=== PATIENT | female | born 1940 | race Caucasian/White ===

== ENCOUNTER 2025-02-28 10:48 | Inpatient (IN) | payer MEDICARE, MEDICAID ==
[~2025-02-28] VITALS: Ht 162.6 cm; Wt 114.6 kg
[2025-02-28] MEDS ORDERED: MAALOX 30 ML SUSP *UDC PO PRN (14:25)
[2025-02-28] MEDS ORDERED: BISACODYL 5 MG TAB PO PRN (14:25)
[2025-02-28] MEDS ORDERED: MOM 30 ML SUSPENSION UDC PO PRN (14:25)
[2025-02-28] MEDS ORDERED: BISACODYL 10 MG SUPP PR PRN (14:25)
[2025-02-28] MEDS ORDERED: SIMETHICONE 80MG CHEW TAB PO PRN (14:25)
[2025-02-28] MEDS ORDERED: ACETAMINOPHEN 325 MG/10.15 ML UDC GT PRN (14:45)
[2025-02-28 17:22] VITALS: BP 110/85; TEMP 98; O2SAT 96
[2025-02-28] MEDS ORDERED: ECOT81TA5 PO (18:20)
[2025-02-28] MEDS ORDERED: ATOR40TA75 PO (18:53)
[2025-02-28] MEDS ORDERED: SPIR-10 PO (18:53)
[2025-02-28] MEDS ORDERED: FARX1TAB3 PO (18:53)
[2025-02-28] MEDS ORDERED: CYAN500T3 PO (18:53)
[2025-02-28] MEDS ORDERED: METO1TAB33 PO (18:53)
[2025-02-28] MEDS ORDERED: CHOL25TA2 PO (18:53)
[2025-02-28] MEDS ORDERED: GABA-1172 PO (18:53)
[2025-02-28] MEDS ORDERED: DOFE125C17 PO (18:53)
[2025-02-28] MEDS ORDERED: CALC600T60 PO (18:53)
[2025-02-28] MEDS ORDERED: LEVO112T2 PO (18:53)
[2025-02-28] MEDS ORDERED: ATOR1TAB19 PO (18:59)
[2025-02-28] MEDS ORDERED: FURO40TA2 PO (18:59)
[2025-02-28] MEDS ORDERED: ELIQ2.5T PO (18:59)
[2025-02-28] MEDS ORDERED: HOME MED LIST COMPLETE! XX SCH (19:00)
[2025-02-28] MEDS ORDERED: MED REC COMMENT (19:00)
[2025-02-28 20:00] VITALS: BP 141/69; TEMP 97.6; O2SAT 97
[2025-02-28] MEDS: HEPARIN SOD 5000 UNITS/ML 1 ML VIAL/SYRINGE SC SCH (20:12)
[2025-02-28] MEDS: SENNA 8.6 MG TAB PO SCH (20:13)
[2025-02-28] MEDS: GABAPENTIN 300 MG CAP PO SCH (20:13)
[2025-02-28] MEDS: NYSTATIN 100,000 UNITS/GM TOPICAL PWD 15 GM TOP SCH (20:40)
[2025-02-28] MEDS ORDERED: DOFETILIDE 125 MCG PO SCH (21:00)
[2025-03-01 03:24] VITALS: BP 146/84; TEMP 98; O2SAT 93
[2025-03-01] MEDS: LEVOTHYROXINE 112 MCG TABLET (0.112 MG) PO SCH (05:48)
[2025-03-01 07:22] LABS: BASO # 0.1 10^3/uL (0.0-0.2); BASO % 0.7 % (0.0-1.0); EOS # 0.1 10^3/uL (0.0-0.5); EOS % 1.7 % (0.0-3.0); LYMPH # 1.3 10^3/uL (1.5-5.0); LYMPH % 18.0 % (24.0-44.0); MONO # 0.6 10^3/uL (0.0-0.8); MONO % 8.8 % (2.0-8.0); NEUTROPHILS # 5.1 10^3/uL (1.5-8.5); NEUTROPHILS % 70.4 % (36.0-66.0)
[2025-03-01 07:30] VITALS: BP 125/68
[2025-03-01] MEDS: CYANOCOBALAMIN 500 MCG TAB PO SCH (07:33)
[2025-03-01] MEDS: ATORVASTATIN 20 MG TAB PO SCH (07:33)
[2025-03-01] MEDS: SPIRONOLACTONE 12.5MG PER 1/2 TABLET PO SCH (07:34)
[2025-03-01] MEDS: APIXABAN 2.5 MG TAB PO SCH (07:34)
[2025-03-01] MEDS: METOPROLOL SUCC. 100 MG *XL* TAB PO SCH (07:34)
[2025-03-01] MEDS: FUROSEMIDE 40 MG TAB PO SCH (07:35)
[2025-03-01] MEDS: DAPAGLIFLOZIN PROPANEDIOL 10 MG TABLET PO SCH (07:36)
[2025-03-01] MEDS: CALCIUM/VITAMIN D 500 MG TAB PO SCH (07:36)
[2025-03-01] MEDS: MULTIVITAMINS/MINERALS THERAP 1 TAB PO SCH (07:36)
[2025-03-01] MEDS: ASPIRIN 81 MG CHEWABLE TABLET PO SCH (07:36)
[2025-03-01 07:45] LABS: CALCIUM LEVEL 8.5 MG/DL (8.3-10.6); CARBON DIOXIDE LEVEL 29.0 MMOL/L (20-31); CHLORIDE LEVEL 105.0 MMOL/L (98-107); CREATININE FOR GFR 1.28 MG/DL (0.55-1.30); GLOMERULAR FILTRATION RATE 41.3 (>32); POTASSIUM SERUM 4.8 MMOL/L (3.5-5.1); SODIUM LEVEL 143.0 MMOL/L (136-145)
[2025-03-01 11:34] VITALS: BP 112/60; TEMP 97.2; O2SAT 94
[2025-03-01] MEDS: DOFETILIDE 125 MCG CAPSULE PO SCH (14:55)
[2025-03-01 20:00] VITALS: BP 120/61; TEMP 97.1; O2SAT 97
[2025-03-02 00:59] VITALS: O2SAT 93
[2025-03-02 04:00] VITALS: BP 125/67; TEMP 97; O2SAT 92
[2025-03-02 07:20] VITALS: BP 141/64
[2025-03-02 07:33] VITALS: BP 121/59
[2025-03-02 10:55] LABS: CALCIUM LEVEL 8.5 MG/DL (8.3-10.6); CARBON DIOXIDE LEVEL 29.0 MMOL/L (20-31); CHLORIDE LEVEL 101.0 MMOL/L (98-107); CREATININE FOR GFR 1.42 MG/DL (0.55-1.30); GLOMERULAR FILTRATION RATE 36.5 (>32); POTASSIUM SERUM 4.8 MMOL/L (3.5-5.1); SODIUM LEVEL 141.0 MMOL/L (136-145)
[2025-03-02 12:00] VITALS: BP 124/56; TEMP 97.4; O2SAT 94
[2025-03-02 20:00] VITALS: BP_SYST 121; BP_SYST 169; BP_DIAS 56; BP_DIAS 70; TEMP 97; TEMP 97.2; O2SAT 92; O2SAT 99
[2025-03-03 04:00] VITALS: BP 112/57; TEMP 97.4; O2SAT 92
[2025-03-03 10:20] LABS: CALCIUM LEVEL 8.5 MG/DL (8.3-10.6); CARBON DIOXIDE LEVEL 31.0 MMOL/L (20-31); CHLORIDE LEVEL 100.0 MMOL/L (98-107); CREATININE FOR GFR 1.4 MG/DL (0.55-1.30); GLOMERULAR FILTRATION RATE 37.1 (>32); POTASSIUM SERUM 4.4 MMOL/L (3.5-5.1); SODIUM LEVEL 141.0 MMOL/L (136-145)
[2025-03-03 12:00] VITALS: BP 103/59; TEMP 97.3; O2SAT 94
[2025-03-03 20:00] VITALS: BP 116/62; TEMP 97.4; O2SAT 93
[2025-03-04 04:00] VITALS: BP 116/57; TEMP 97.8; O2SAT 92
[2025-03-04 06:25] LABS: CALCIUM LEVEL 8.2 MG/DL (8.3-10.6); CARBON DIOXIDE LEVEL 31.0 MMOL/L (20-31); CHLORIDE LEVEL 102.0 MMOL/L (98-107); CREATININE FOR GFR 1.43 MG/DL (0.55-1.30); GLOMERULAR FILTRATION RATE 36.2 (>32); POTASSIUM SERUM 4.6 MMOL/L (3.5-5.1); SODIUM LEVEL 142.0 MMOL/L (136-145)
[2025-03-04 12:00] VITALS: BP 102/57; TEMP 96.7; O2SAT 94
[2025-03-04 20:00] VITALS: BP 105/74; TEMP 97; O2SAT 93
[2025-03-05 04:00] VITALS: BP 111/56; TEMP 97.3; O2SAT 90
[2025-03-05 06:19] LABS: CALCIUM LEVEL 8.4 MG/DL (8.3-10.6); CARBON DIOXIDE LEVEL 32.0 MMOL/L (20-31); CHLORIDE LEVEL 99.0 MMOL/L (98-107); CREATININE FOR GFR 1.58 MG/DL (0.55-1.30); GLOMERULAR FILTRATION RATE 32.1 (>32); POTASSIUM SERUM 4.8 MMOL/L (3.5-5.1); SODIUM LEVEL 140.0 MMOL/L (136-145)
[2025-03-05 08:20] VITALS: BP 122/59
[2025-03-05 12:30] VITALS: BP 101/59; TEMP 97.5; O2SAT 95
[2025-03-05 20:00] VITALS: BP 135/67; TEMP 97.8; O2SAT 92
[2025-03-06 04:00] VITALS: BP 101/57; TEMP 97.2; O2SAT 93
[2025-03-06 07:07] LABS: CALCIUM LEVEL 8.8 MG/DL (8.3-10.6); CARBON DIOXIDE LEVEL 30.0 MMOL/L (20-31); CHLORIDE LEVEL 101.0 MMOL/L (98-107); CREATININE FOR GFR 1.45 MG/DL (0.55-1.30); GLOMERULAR FILTRATION RATE 35.6 (>32); POTASSIUM SERUM 4.9 MMOL/L (3.5-5.1); SODIUM LEVEL 142.0 MMOL/L (136-145)
[2025-03-06 08:39] VITALS: BP 105/57
[2025-03-06] MEDS ORDERED: E-Z-PAQUE 96% w/w SUSP 176 GM BTL As Ordered ONE (11:11)
[2025-03-06] MEDS ORDERED: BARIUM SULFATE 700 MG TABLET As Ordered ONE (11:11)
[2025-03-06] MEDS ORDERED: VARIBAR NECTAR 40% w/v 240ML SUSP BTL As Ordered ONE (11:12)
[2025-03-06] MEDS ORDERED: VARIBAR PUDDING 40% w/v 230ML TUBE As Ordered ONE (11:12)
[2025-03-06 12:00] VITALS: BP 106/69; TEMP 97.4; O2SAT 93
[2025-03-06 20:00] VITALS: BP 121/60; TEMP 97.2; O2SAT 91
[2025-03-07 04:00] VITALS: BP 130/85; TEMP 97.9; O2SAT 90
[2025-03-07 06:58] LABS: CALCIUM LEVEL 8.5 MG/DL (8.3-10.6); CARBON DIOXIDE LEVEL 29.0 MMOL/L (20-31); CHLORIDE LEVEL 103.0 MMOL/L (98-107); CREATININE FOR GFR 1.43 MG/DL (0.55-1.30); GLOMERULAR FILTRATION RATE 36.2 (>32); POTASSIUM SERUM 4.7 MMOL/L (3.5-5.1); SODIUM LEVEL 142.0 MMOL/L (136-145)
[2025-03-07 12:00] VITALS: BP 108/75; TEMP 97.5; O2SAT 92
[2025-03-07 20:00] VITALS: BP 126/73; TEMP 97.1; O2SAT 90
[2025-03-08 04:00] VITALS: BP 114/69; TEMP 97; O2SAT 92
[2025-03-08 12:30] VITALS: BP 99/54; TEMP 96.3; O2SAT 100
[2025-03-08 20:00] VITALS: BP 120/72; TEMP 97; O2SAT 92
[2025-03-09 04:00] VITALS: BP 113/53; TEMP 97; O2SAT 92
[2025-03-09 07:34] LABS: BASO # 0.1 10^3/uL (0.0-0.2); BASO % 1.0 % (0.0-1.0); EOS # 0.2 10^3/uL (0.0-0.5); EOS % 2.2 % (0.0-3.0); LYMPH # 1.2 10^3/uL (1.5-5.0); LYMPH % 16.2 % (24.0-44.0); MONO # 0.6 10^3/uL (0.0-0.8); MONO % 8.4 % (2.0-8.0); NEUTROPHILS # 5.2 10^3/uL (1.5-8.5); NEUTROPHILS % 71.9 % (36.0-66.0); PLATELET COUNT, AUTOMATED 290 10^3/uL (150-450)
[2025-03-09 07:47] LABS: CALCIUM LEVEL 8.3 MG/DL (8.3-10.6); CARBON DIOXIDE LEVEL 30.0 MMOL/L (20-31); CHLORIDE LEVEL 100.0 MMOL/L (98-107); CREATININE FOR GFR 1.52 MG/DL (0.55-1.30); GLOMERULAR FILTRATION RATE 33.6 (>32); POTASSIUM SERUM 4.4 MMOL/L (3.5-5.1); SODIUM LEVEL 142.0 MMOL/L (136-145)
[2025-03-09 09:06] VITALS: BP 120/53
[2025-03-09 12:00] VITALS: BP 115/56; TEMP 97.2; O2SAT 92
[2025-03-09 20:00] VITALS: BP 109/56; TEMP 97; O2SAT 91
[2025-03-10 04:00] VITALS: BP 100/59; TEMP 97; O2SAT 91
[2025-03-10 08:17] VITALS: BP 116/56
[2025-03-10 12:00] VITALS: BP 105/61; TEMP 98.1; O2SAT 96
[2025-03-10 20:09] VITALS: BP 118/65; TEMP 97; O2SAT 91
[2025-03-11 03:40] VITALS: BP 122/58; TEMP 97; O2SAT 92
[2025-03-11 12:00] VITALS: BP 107/54; TEMP 97; O2SAT 94
[2025-03-11 19:30] VITALS: BP 127/60; TEMP 97; O2SAT 92
[2025-03-12 05:29] VITALS: BP 102/51; TEMP 97.3; O2SAT 90
[2025-03-12] MEDS: NYSTATIN 500,000 UNITS/5 ML SUSP UDC SSP SCH (12:43)
[2025-03-12 13:26] VITALS: BP 105/56; TEMP 96.8; O2SAT 95
[2025-03-12 20:00] VITALS: BP 102/60; TEMP 96.8; O2SAT 96
[2025-03-13 04:00] VITALS: BP 110/58; TEMP 96.5; O2SAT 90
[2025-03-13 07:29] LABS: BASO # 0.1 10^3/uL (0.0-0.2); BASO % 0.9 % (0.0-1.0); EOS # 0.2 10^3/uL (0.0-0.5); EOS % 2.0 % (0.0-3.0); LYMPH # 1.1 10^3/uL (1.5-5.0); LYMPH % 15.1 % (24.0-44.0); MONO # 0.5 10^3/uL (0.0-0.8); MONO % 6.1 % (2.0-8.0); NEUTROPHILS # 5.7 10^3/uL (1.5-8.5); NEUTROPHILS % 75.5 % (36.0-66.0); PLATELET COUNT, AUTOMATED 341 10^3/uL (150-450)
[2025-03-13 08:03] LABS: CALCIUM LEVEL 8.7 MG/DL (8.3-10.6); CARBON DIOXIDE LEVEL 27.0 MMOL/L (20-31); CHLORIDE LEVEL 102.0 MMOL/L (98-107); CREATININE FOR GFR 1.46 MG/DL (0.55-1.30); GLOMERULAR FILTRATION RATE 35.3 (>32); POTASSIUM SERUM 4.6 MMOL/L (3.5-5.1); SODIUM LEVEL 142.0 MMOL/L (136-145)
[2025-03-13] MEDS: SPIRONOLACTONE 25 MG TAB PO STA (10:19)
[2025-03-13 12:00] VITALS: BP 99/54; TEMP 96.9; O2SAT 94
[2025-03-13 20:00] VITALS: BP 101/55; TEMP 96.6; O2SAT 100
[2025-03-14 04:00] VITALS: BP 104/58; TEMP 96.7; O2SAT 97
[2025-03-14 12:00] VITALS: BP 93/51; TEMP 96.9; O2SAT 97
[2025-03-14 20:00] VITALS: BP 136/59; TEMP 97.6; O2SAT 96
[2025-03-15 04:00] VITALS: BP 113/53; TEMP 96.5; O2SAT 94
[2025-03-15 08:24] LABS: CALCIUM LEVEL 8.5 MG/DL (8.3-10.6); CARBON DIOXIDE LEVEL 33.0 MMOL/L (20-31); CHLORIDE LEVEL 101.0 MMOL/L (98-107); CREATININE FOR GFR 1.65 MG/DL (0.55-1.30); GLOMERULAR FILTRATION RATE 30.5 (>32); POTASSIUM SERUM 4.7 MMOL/L (3.5-5.1); SODIUM LEVEL 142.0 MMOL/L (136-145)
[2025-03-15 12:00] VITALS: BP 112/56; TEMP 97; O2SAT 98
[2025-03-15] MEDS: GABAPENTIN 100 MG CAP PO SCH (18:07)
[2025-03-15 20:00] VITALS: BP 119/58; TEMP 97.8; O2SAT 98
[2025-03-16 04:00] VITALS: BP 116/58; TEMP 97.1; O2SAT 100
[2025-03-16 09:32] VITALS: BP 92/55
[2025-03-16 10:31] LABS: BASO # 0.0 10^3/uL (0.0-0.2); BASO % 0.6 % (0.0-1.0); EOS # 0.1 10^3/uL (0.0-0.5); EOS % 1.7 % (0.0-3.0); LYMPH # 0.9 10^3/uL (1.5-5.0); LYMPH % 13.1 % (24.0-44.0); MONO # 0.4 10^3/uL (0.0-0.8); MONO % 6.2 % (2.0-8.0); NEUTROPHILS # 5.2 10^3/uL (1.5-8.5); NEUTROPHILS % 78.1 % (36.0-66.0); PLATELET COUNT, AUTOMATED 296 10^3/uL (150-450)
[2025-03-16 11:02] LABS: CALCIUM LEVEL 8.9 MG/DL (8.3-10.6); CARBON DIOXIDE LEVEL 31.0 MMOL/L (20-31); CHLORIDE LEVEL 100.0 MMOL/L (98-107); CREATININE FOR GFR 1.37 MG/DL (0.55-1.30); GLOMERULAR FILTRATION RATE 38.1 (>32); POTASSIUM SERUM 5.2 MMOL/L (3.5-5.1); SODIUM LEVEL 140.0 MMOL/L (136-145)
[2025-03-16 12:00] VITALS: BP 95/59; TEMP 97; O2SAT 97
[2025-03-16 20:00] VITALS: BP 110/55; TEMP 98.7; O2SAT 98
[2025-03-17 04:00] VITALS: BP 101/54; TEMP 96.1; O2SAT 97
[2025-03-17 12:00] VITALS: BP 93/50; TEMP 97; O2SAT 94
[2025-03-17 20:00] VITALS: BP 118/58; TEMP 96.3; O2SAT 97
[2025-03-18 04:00] VITALS: BP 130/60; TEMP 97; O2SAT 96
[2025-03-18 10:53] VITALS: BP 115/56; TEMP 97.1; O2SAT 97
[2025-03-18 12:00] VITALS: BP 113/58; TEMP 97; O2SAT 97
[2025-03-18 20:04] VITALS: BP 124/70; TEMP 97.4; O2SAT 97
[2025-03-19 05:18] VITALS: BP 116/61; TEMP 97; O2SAT 97
[2025-03-19 12:00] VITALS: BP 115/57; TEMP 96.9; O2SAT 97
[2025-03-19 20:02] VITALS: BP 117/59; TEMP 97.4; O2SAT 98
[2025-03-20 05:31] VITALS: BP 114/57; TEMP 97.6; O2SAT 95
[2025-03-20 12:00] VITALS: BP 108/56; TEMP 96.8; O2SAT 98
[2025-03-20 20:00] VITALS: BP 136/64; TEMP 97.1; O2SAT 97
[2025-03-21 04:00] VITALS: BP 126/78; TEMP 97.2; O2SAT 96
[2025-03-21 06:28] VITALS: O2SAT 95
[2025-03-21 12:00] VITALS: BP 102/60; TEMP 97.5; O2SAT 100
[2025-03-21 20:00] VITALS: BP 122/94; TEMP 97; O2SAT 96
[2025-03-22 04:00] VITALS: BP 128/58; TEMP 97; O2SAT 97
[2025-03-22 12:00] VITALS: BP 116/57; TEMP 96.4; O2SAT 97
[2025-03-22 20:00] VITALS: BP 117/56; TEMP 96.4; TEMP 96.9; O2SAT 100
[2025-03-23 04:00] VITALS: BP 125/60; TEMP 96.9; O2SAT 98
[2025-03-23] MEDS ORDERED: GABA-1171 PO (08:44)
[2025-03-23] MEDS ORDERED: DULO1CAP4 PO (08:44)
[2025-03-23] MEDS ORDERED: ATOR1TAB21 PO (08:44)
[2025-03-23] MEDS ORDERED: FURO40TA2 PO (08:44)
[2025-03-23 09:37] VITALS: BP 114/56
[2025-03-23 12:13] VITALS: BP 118/64; TEMP 96.8; O2SAT 97
== END 2025-03-23 12:43 | DRG 56 ==
LOC: M PM&R 17:00
PROVIDERS: ADMIT Physical Medicine & Rehabilitation; ATTEND Physical Medicine & Rehabilitation
DX: I69.351 Hemiplegia and hemiparesis following cerebral infarction affecting right dominant side (principal); I61.0 Nontraumatic intracerebral hemorrhage in hemisphere, subcortical; I63.512 Cerebral infarction due to unspecified occlusion or stenosis of left middle cerebral artery; I50.32 Chronic diastolic (congestive) heart failure; I13.0 Hypertensive heart and chronic kidney disease with heart failure and stage 1 through stage 4 chronic kidney disease, or unspecified chronic kidney disease; G81.92 Hemiplegia, unspecified affecting left dominant side; I48.0 Paroxysmal atrial fibrillation; K21.9 Gastro-esophageal reflux disease without esophagitis; N18.30 Chronic kidney disease, stage 3 unspecified; M19.90 Unspecified osteoarthritis, unspecified site; M10.9 Gout, unspecified; E03.9 Hypothyroidism, unspecified; R47.81 Slurred speech; Z74.1 Need for assistance with personal care; Z74.09 Other reduced mobility; E78.5 Hyperlipidemia, unspecified; R13.12 Dysphagia, oropharyngeal phase; E11.22 Type 2 diabetes mellitus with diabetic chronic kidney disease; Z79.01 Long term (current) use of anticoagulants; Z79.890 Hormone replacement therapy; Z79.84 Long term (current) use of oral hypoglycemic drugs; Z79.82 Long term (current) use of aspirin; Z79.899 Other long term (current) drug therapy; Z91.041 Radiographic dye allergy status; Z91.048 Other nonmedicinal substance allergy status; Z88.6 Allergy status to analgesic agent; Z88.8 Allergy status to other drugs, medicaments and biological substances; Z85.038 Personal history of other malignant neoplasm of large intestine; Z90.49 Acquired absence of other specified parts of digestive tract; Z90.79 Acquired absence of other genital organ(s); Z90.5 Acquired absence of kidney; Z96.698 Presence of other orthopedic joint implants; I69.391 Dysphagia following cerebral infarction

== ENCOUNTER → 2025-03-26 | Outpatient (REF) | payer MEDICARE, MEDICAID ==
[~2025-03-26] MED LIST: ATOR1TAB19 PO; ATOR1TAB21 PO; ATOR40TA75 PO; CALC600T60 PO; CHOL25TA2 PO; CYAN500T3 PO; DOFE125C17 PO; DULO1CAP4 PO; ECOT81TA5 PO; ELIQ2.5T PO; FARX1TAB3 PO; FURO40TA2 PO; GABA-1171 PO; GABA-1172 PO; LEVO112T2 PO; MED REC COMMENT; METO1TAB33 PO; SPIR-10 PO
[2025-03-26 08:10] LABS: PLATELET COUNT, AUTOMATED 199 10^3/uL (150-450)
[2025-03-26 08:34] LABS: CALCIUM LEVEL 8.9 MG/DL (8.3-10.6); CARBON DIOXIDE LEVEL 36.0 MMOL/L (20-31); CHLORIDE LEVEL 101.0 MMOL/L (98-107); CREATININE FOR GFR 1.27 MG/DL (0.55-1.30); GLOMERULAR FILTRATION RATE 41.7 (>32); POTASSIUM SERUM 5.0 MMOL/L (3.5-5.1); SODIUM LEVEL 147.0 MMOL/L (136-145)
== END ==
LOC: SKLAB2 07:00
PROVIDERS: ATTEND Family Medicine
DX: I69.351 Hemiplegia and hemiparesis following cerebral infarction affecting right dominant side (principal)

== ENCOUNTER → 2025-03-27 | Outpatient (REF) | payer MEDICARE, MEDICAID | LOC: SKLAB2 09:10 | PROVIDERS: ATTEND Family Medicine | DX: R06.89 Other abnormalities of breathing (principal) ==

== ENCOUNTER → 2025-04-06 | Outpatient (REF) | payer MEDICARE, MEDICAID ==
[2025-04-06 08:44] LABS: CALCIUM LEVEL 8.6 MG/DL (8.3-10.6); CARBON DIOXIDE LEVEL 33.0 MMOL/L (20-31); CHLORIDE LEVEL 98.0 MMOL/L (98-107); CREATININE FOR GFR 1.56 MG/DL (0.55-1.30); GLOMERULAR FILTRATION RATE 32.6 (>32); POTASSIUM SERUM 4.4 MMOL/L (3.5-5.1); SODIUM LEVEL 142.0 MMOL/L (136-145)
== END ==
LOC: SKLAB2 07:00
PROVIDERS: ATTEND Family Medicine
DX: N18.9 Chronic kidney disease, unspecified (principal)

== ENCOUNTER → 2025-05-23 | Outpatient (REF) | payer MEDICARE, MEDICAID | LOC: SKLAB2 11:28 | PROVIDERS: ATTEND Family Medicine | DX: R06.02 Shortness of breath (principal); J98.4 Other disorders of lung ==